=== PATIENT | male | born 1965 | race Hispanic/Latino ===

== ENCOUNTER 2019-08-15 13:40 | Emergency (ER) | payer OTHER, SELFPAY ==
[2019-08-15 13:51] VITALS: BP 118/62; PULSE 71; RESP 16; TEMP 36.4; O2SAT 100
--- NOTE | 2019-08-15 13:54 | ED.URI ---
HPI - URI/Sore Throat General Chief Complaint: Ear Stated Complaint: Sore Throat Time Seen by Provider: 08/15/19 14:11 Source: patient and RN notes reviewed Mode of arrival: ambulatory Limitations: no limitations History of Present Illness HPI Narrative: 54-year-old male presents with concern for right ear pain, body aches, headache, eye heaviness. Reports symptoms started on Friday. Denies taking any medications for symptoms. MD elicited complaint: other (Ear pain) Related Data Allergies Allergy/AdvReac Type Severity Reaction Status Date / Time No Known Allergies Allergy Verified 05/27/19 08:41 Review of Systems Review of Systems: Narrative: CONSTITUTIONAL: Reports malaise, chills, sweats. Denies fever. EYES: Denies visual changes, redness, or discharge. Reports bilateral eye heaviness ENT: Denies rhinorrhea, congestion, sinus pain, otalgia and sore throat. CARDIOVASCULAR: Denies chest pain, palpitations, or edema. RESPIRATORY: Denies cough or dyspnea. GASTROINTESTINAL: Denies abdominal pain, nausea, vomiting, diarrhea SKIN: Denies rash or itching. MUSCULOSKELETAL: Reports myalgia. NEUROLOGIC: Reports headache. All systems reviewed & are unremarkable except as noted in HPI and below PMFSH Social History Social History Smoking status: Never smoker Alcohol intake: current Comments At time of signature, agree with nursing past medical, surgical, social and family history. There is no relevant family history pertinent to the presenting complaint Exam Narrative: Exam Narrative: GENERAL: Well-appearing, well-nourished, and in no acute distress. HEAD: Normocephalic EYES: PERRLA, conjunctivae clear ENT: Nares clear, turbinates erythematous, clear discharge. Mucous membranes moist. Left TM pearly tubbs with dull light reflex, right TM not visible due to cerumen impaction; no tragal tenderness. Oropharynx not erythematous without lesions. Tonsils not enlarged and without exudate, no drooling, no hoarseness, no trismus. NECK: Supple. No lymphadenopathy CHEST: Clear to auscultation, breath sounds equal. No wheezing, rhonchi, rales, or stridor. No respiratory distress, speaks in full sentences. HEART: Regular rate and rhythm. No murmur heard. Normal peripheral pulses. SKIN: Warm, dry, no rash. NEURO: Alert and oriented x3. PSYCH: Normal mood and affect Course Course Emergency Course: Patient is aware of diagnosis, understands and agrees to treatment plan. Anticipatory guidance given. Patient agrees to follow-up as directed and is aware of reasons to seek care at the emergency department. Portions of this record may have been created with voice recognition software Vital Signs Vital signs: Vital Signs Temperature 97.5 F L 08/15/19 13:51 Pulse Rate 71 08/15/19 13:51 Respiratory Rate 16 08/15/19 13:51 Blood Pressure 118/62 08/15/19 13:51 Pulse Oximetry 100 08/15/19 13:51 Temperature 97.5 F L 08/15/19 13:51 Pulse Rate 71 08/15/19 13:51 Respiratory Rate 16 08/15/19 13:51 Blood Pressure 118/62 08/15/19 13:51 Pulse Oximetry 100 08/15/19 13:51 Reviewed. Procedures Ear Wax Removal Right Ear: Ear Wax Removal Date: 08/15/19 Ear Wax Removal Time: 14:23 Results: Re-examined: some cerumen remains TM Examination: TM(s) intact, normal appearance Ear Canal Exam: atraumatic Patient Tolerated Procedure: well and no complications Complications: no problems Technique: ear canal irrigated and ear canal curetted Additional Comments: TM pearly tubbs intact MDM - URI/Sore Throat MDM Narrative Medical decision making narrative: Differential diagnosis considered: Strep pharyngitis, allergic rhinitis, upper respiratory tract infection, sinusitis, rhinosinusitis, nasopharyngitis. viral pharyngitis, otitis media, otitis externa, pneumonia, bronchitis, viral cough syndrome, viral syndrome, and in
== END 2019-08-15 15:25 | disposition home or self-care (01) ==
PROVIDERS: Emergency Provider Nurse Practitioner; PCP Emergency Medicine
DX: B34.9 Viral infection, unspecified (principal); H61.21 Impacted cerumen, right ear
CPT/HCPCS: 69210; 99213; G0463

== ENCOUNTER 2020-11-06 10:45 | Outpatient (CLI) | payer OTHER, SELFPAY ==
--- NOTE | ~2020-11-06 | XR_ITS ---
XR hand LT 2V DATE: 11/06/2020 11:09 INDICATION: Left finger pain TECHNIQUE: AP and lateral views COMPARISON: None FINDINGS: There is mild osteoarthritic change at the first carpometacarpal and some interphalangeal j oints. No recent fracture, dislocation, periosteal reaction or bone destruction. No erosive change or chondr ocalcinosis. IMPRESSION: Mild osteoarthritis Reviewed, dictated and finalized at location A. IMPRESSION: Mild osteoarthritis
== END 2020-11-06 10:46 | disposition home or self-care (01) ==
PROVIDERS: PCP Emergency Medicine; Visit Provider Emergency Medicine
DX: M79.645 Pain in left finger(s) (principal); M19.042 Primary osteoarthritis, left hand
CPT/HCPCS: 73120

== ENCOUNTER 2021-01-16 09:29 | Emergency (ER) | payer OTHER, SELFPAY ==
[2021-01-16 09:39] VITALS: BP 114/80; PULSE 76; RESP 16; TEMP 35.8; O2SAT 99
--- NOTE | 2021-01-16 09:55 | ED.SKABFB ---
HPI - Skin/Abscess/Foreign Bdy General Chief complaint: Skin/Abscess/Foreign Body Stated complaint: rash Time Seen by Provider: 01/16/21 09:43 Source: patient and RN notes reviewed Mode of arrival: ambulatory Limitations: no limitations History of Present Illness HPI narrative: Patient presents today complaining of a rash to the bilateral arms, back, and chest x6 days and has been worsening on the trunk. Denies itching or pain. He has tried no [id number] treatment prior to arrival. Denies any exacerbating or improving factors. MD complaint: rash Related Data Allergies Allergy/AdvReac Type Severity Reaction Status Date / Time No Known Allergies Allergy Verified 01/16/21 09:43 Review of Systems Review of Systems: Narrative: CONSTITUTIONAL: Denies body aches, fever, chills, or sweats. EYES: Denies visual changes, redness, or discharge. ENT: Denies rhinorrhea, congestion, sore throat, or otalgia. CARDIOVASCULAR: Denies chest pain, palpitations, or edema. RESPIRATORY: Denies cough or dyspnea. GASTROINTESTINAL: Denies abdominal pain, nausea, vomiting, or diarrhea. GENITOURINARY: Denies dysuria or hematuria. SKIN: + Rash MUSCULOSKELETAL: Denies back pain, joint pain, or myalgia. NEUROLOGIC: Denies headache, numbness, tingling, or weakness. PSYCH: Denies depression or anxiety. REPLACED BY [facility] Past Medical History Medical History (Reviewed 01/16/21 @ 17:37 by Emerita Allen, [facility], ) Pain of left thumb Social History Social History (Reviewed 01/16/21 @ 17:37 by Emerita Allen, [facility], ) Smoking status: Never smoker Alcohol intake: current Comments At time of signature, I have reviewed and agree with nursing past medical, surgical, social and family history unless otherwise noted. Please see nursing chart for further information. There is no relevant family history pertinent to the presenting complaint Exam Narrative: Exam Narrative: GENERAL: Well-appearing, well-nourished, and in no acute distress. HEAD: Normocephalic, atraumatic. EYES: EOMI. No redness or drainage. Conjunctivae normal. ENT: Mucous membranes pink and moist. NECK: Normal AROM. CHEST: No respiratory distress. EXTREMITIES: Normal range of motion. No edema. SKIN: Warm, dry. Capillary refill normal. Normal skin turgor. + Erythematous papular rash to the bilateral arms, chest, abdomen, and back NEURO: No focal deficits. Alert and oriented x3. Gait steady. PSYCH: Normal affect. No signs of depression or anxiety. Course Vital Signs Vital signs: Vital Signs Temperature 96.4 F L 01/16/21 09:39 Pulse Rate 76 01/16/21 09:39 Respiratory Rate 16 01/16/21 09:39 Blood Pressure 114/80 01/16/21 09:39 Pulse Oximetry 99 01/16/21 09:39 Temperature 96.4 F L 01/16/21 09:39 Pulse Rate 76 01/16/21 09:39 Respiratory Rate 16 01/16/21 09:39 Blood Pressure 114/80 01/16/21 09:39 Pulse Oximetry 99 01/16/21 09:39 Reviewed MDM - Skin/Abscess/Foreign Bdy Differential Diagnosis Differential diagnosis: Likely urticaria, cellulitis, eczema, insect bites, impetigo and contact dermatitis Critical Care Time Critical Care Time Critical Care Time: No Discharge Plan Discharge Clinical Impression: Dermatitis Patient Disposition: Home, Self-Care Condition: Stable Instructions: Dermatitis (ED) Additional Instructions: Please take the prednisone as prescribed. For itching, please take an antihistamine such as Benadryl, Zyrtec, Claritin, or Darya. Follow-up with your PCP in 3 to 4 days if symptoms are not improving. Patient Language: [place] Islander Prescriptions: New prednisone 50 mg tablet 50 mg PO DAILY 5 Days Qty: 5 RF: 0 Follow-up/Referrals: Lorenzo Gregory MD [Primary Care Provider] - Time of Disposition: 09:
== END 2021-01-16 10:08 | disposition home or self-care (01) ==
PROVIDERS: Emergency Provider Nurse Practitioner; PCP Emergency Medicine
DX: L30.9 Dermatitis, unspecified (principal)
CPT/HCPCS: 99213; G0463

== ENCOUNTER 2021-02-21 09:45 | Emergency (ER) | payer OTHER, SELFPAY ==
[2021-02-21 10:13] VITALS: BP 108/73; PULSE 74; RESP 16; TEMP 36.6; O2SAT 99
--- NOTE | 2021-02-21 11:17 | ED.SKABFB ---
HPI - Skin/Abscess/Foreign Bdy General Chief complaint: Skin/Abscess/Foreign Body Stated complaint: abd pain Time Seen by Provider: 02/21/21 10:52 Source: patient and RN notes reviewed Mode of arrival: ambulatory Limitations: no limitations History of Present Illness HPI narrative: 55-year-old male presents to the [facility] with complaints of a rash to his left upper arm and chest. Red raised areas with some vesicles at the hair follicles only. Denies itchiness or pain. States has been there for several weeks possibly for. Patient states he is also concerned about a hemorrhoid. Woke up this morning and tried to have a bowel movement had some tenderness to the rectal area. No bleeding noted. Hemorrhoid is not thrombosed. MD complaint: rash Related Data Allergies Allergy/AdvReac Type Severity Reaction Status Date / Time No Known Allergies Allergy Verified 01/16/21 09:43 Review of Systems Review of Systems: All systems reviewed & are unremarkable except as noted in HPI and below Constitutional: Constitutional: Reports no additional constitutional complaints, Denies chills and Denies fever(s) Eyes: Eyes: Reports no additional eye complaints ENT: Reports system reviewed and no additional complaints, except as documented and Denies sore throat Cardiovascular: Cardiovascular: Reports no additional cardiovascular complaints and Denies chest pain Respiratory: Respiratory: Reports no additional respiratory complaints, Denies cough and Denies dyspnea Gastrointestinal: Gastrointestinal: Reports no additional gastrointestinal complaints, Denies abdominal pain, Denies bloating, Denies hematochezia, Denies fecal incontinence, Denies loose stools, Denies nausea, Denies vomiting and Denies hematemesis Genitourinary: Genitourinary: Reports no additional male genitourinary complaints Musculoskeletal: Musculoskeletal: Reports no additional musculoskeletal complaints and Denies back pain Integumentary/Breasts: Skin/Breast: Reports as per HPI and Reports rash Neurologic: Reports system reviewed and no additional complaints, except as documented Psychiatric: Psychiatric: Reports no additional psychiatric complaints Allergic/Immunologic: Allergic/Immunologic: Reports no additional allergic/immunologic complaints PMFSH Past Medical History Medical History Pain of left thumb Surgical History Surgical History (Updated 02/21/21 @ 12:10 by Livier Muller) No significant past surgical history Social History Social History (Reviewed 09/01/21 @ 12:11 by Livier Pacheco Smoking status: Never smoker Alcohol intake: current Comments At the time of my signature, I reviewed and agree with the nursing past medical, surgical, social, and family history. There is no relevant family history pertinent to the patient complaint. Exam Const: General: healthy appearing, no acute distress and alert Nutritional Appearance: well nourished Orientation/consciousness: patient oriented x3 Limitations: no limitations HENMT: Head: normal to inspection Ears: external ears normal Eyes: Conjunctivae: conjunctivae normal Pupils: Equal, round and reactive pupils present Neck: Neck: normal visual inspection, no lymphadenopathy and no meningeal signs Chest: Chest palpation & inspection: normal inspection of the chest Resp: Effort & Inspection: normal respiratory effort and no use of accessory muscles Auscultation: clear to auscultation bilaterally, no crackles, no rales, no rhonchi and no wheezes Cardio: Rate: regular rate Rhythm: regular rhythm GI: GI Palp: Yes Soft to palpation and No Tenderness to palpation present (GI) : General: Yes no CVA tenderness Other: Hemorrhoid noted at the 3:00 rectally. Nonthrombosed. Tender to touch. Back/Spine/Pelvis: Back: no CVA tenderness Skin: General skin exam: normal color Neuro: General: patient oriented x3, moves all extremities, no menin
== END 2021-02-21 11:31 | disposition home or self-care (01) ==
PROVIDERS: Emergency Provider Nurse Practitioner
DX: L73.9 Follicular disorder, unspecified (principal); K64.9 Unspecified hemorrhoids
CPT/HCPCS: 99213; G0463

== ENCOUNTER 2021-05-10 10:14 | Outpatient (CLI) | payer OTHER, SELFPAY ==
[2021-05-10 12:57] LABS: Hemoglobin 15.8 g/dL (14.0-18.0); Mean Corpuscular HGB Conc 34.3 g/dl (32-36); Mean Corpuscular Hemoglobin 28.6 pg (26-34); Mean Corpuscular Volume 83.2 fl (80-100); Mean Platelet Volume 10.2 fl (7.4-10.4); Platelet Count Result 215 k/mm3 (150-375); Red Blood Count 5.53 M/mm3 (4.6-6.20); Red Cell Distribution Width 12.4 % (11.5-14.5); White Blood Count 7.4 K/mm3 (4.5-10.0)
[2021-05-10 13:21] LABS: Alanine Aminotransferase 39 U/L (4-50); Albumin Level 4.6 g/dL (3.5-5.1); Alkaline Phosphatase 112 U/L (38-126); Anion Gap 10 mmol/L (8-16); Aspartate Amino Transferase 22 U/L (17-59); Bilirubin,Total 0.6 mg/dL (0.2-1.3); Blood Urea Nitrogen 18 mg/dL (9-20); Calcium 9.5 mg/dL (8.4-10.2); Carbon Dioxide 24 mmol/L (22-30); Chloride 100 mmol/L (98-107); Cholesterol 214 mg/dL (0-200); Estimated Glomerular Filt Rate > 60; Glucose 227 mg/dL (65-110); HDL Direct 44 mg/dL; Potassium 3.9 mmol/L (3.4-5.0); Sodium 134 mmol/L (137-145); Triglycerides 368 mg/dL (<150)
[2021-05-10 13:32] LABS: LDL Cholesterol Direct 105 mg/dL
[2021-05-10 13:45] LABS: Add Urine Microscopic? YES; Appearance Urine Clear (Clear); Bilirubin Urine Negative (Negative); Blood Urine Negative (Negative); Color Urine Yellow (Yellow); Glucose Urine UA 3+ mg/dL (Negative); Ketones Urine Trace mg/dL (Negative); Leukocyte Esterase Ur Negative LEU/UL (NEGATIVE); Mucus Urine Rare /lpf; Nitrate Urine Negative (Negative); Protein Urine 1+ mg/dL (Negative); Urobilinogen Urine Negative mg/dL (<2.0); WBC Urine 0-3 /hpf (0-3)
[2021-05-10 13:52] LABS: Prostate Specific Antigen 0.2 ng/mL (< OR = 4.0)
[2021-05-10 14:27] LABS: Hemoglobin A1C 10.1 % (<5.7)
== END 2021-05-10 10:15 | disposition home or self-care (01) ==
LOC: ANHWCLAB 10:19
PROVIDERS: PCP Emergency Medicine; Referring Provider Nurse Practitioner Family; Visit Provider Nurse Practitioner Family
DX: Z00.00 Encounter for general adult medical examination without abnormal findings (principal); Z13.29 Encounter for screening for other suspected endocrine disorder; Z13.220 Encounter for screening for lipoid disorders; Z13.89 Encounter for screening for other disorder; Z13.1 Encounter for screening for diabetes mellitus
CPT/HCPCS: 36415; 80053; 80061; 81001; 83036; 84153; 84443; 85027

== ENCOUNTER 2021-09-11 08:42 | Emergency (ER) | payer OTHER, SELFPAY ==
--- NOTE | ~2021-09-11 | XR_ITS ---
XR knee RT 3V, XR knee LT 3V 09/11/2021 09:22 Indication: Bilateral knee pain Procedure: 3 views each knee Comparison: No prior studies for comparison. Findings: Mild osteoarthritis of both knees. No fracture, subluxation or dislocation. No significant joint effusion. No foreign bodies. Impression: 1: Mild osteoarthritis of the knees. Reviewed, dictated and finalized at location A. Impression: 1: Mild osteoarthritis of the knees. Impression: 1: Mild osteoarthritis of the knees.
[2021-09-11 08:55] VITALS: BP 99/74; PULSE 74; RESP 16; TEMP 36.2; O2SAT 99
--- NOTE | 2021-09-11 08:55 | ED.EXTPRO ---
HPI - Extremity Problem General Chief complaint: Extremity Injury, Lower Stated complaint: left leg pain Time Seen by Provider: 09/11/21 08:56 Source: patient, RN notes reviewed and old records reviewed Mode of arrival: ambulatory Limitations: no limitations History of Present Illness HPI Narrative: 56-year-old male presents to the [facility] with a complaints of bilateral leg pain, posterior knee pain, occasional headache, back pain. Most concerned today for the posterior knee pain that kept him up last night. Denies any injuries. No swelling, redness or signs of infection. Denies fevers. Patient reports that he wants something to help him sleep and to help with the pain. Patient has a history of diabetes and high cholesterol. Patient states that he was prescribed medication back in April, finished in May. Has not taken his cholesterol medication or diabetes medication since mid May. Educated patient on the importance of taking it every day and follow-up with primary MD Complaint: extremity pain (bilateral knees) Related Data Home Medications Medication Instructions Recorded Confirmed atorvastatin 40 mg PO DAILY 09/11/21 09/11/21 metformin 1,000 mg PO DAILY 09/11/21 09/11/21 Allergies Allergy/AdvReac Type Severity Reaction Status Date / Time No Known Allergies Allergy Verified 09/11/21 09:07 Review of Systems Review of Systems: All systems reviewed & are unremarkable except as noted in HPI and below Constitutional: Constitutional: Reports no additional constitutional complaints, Denies chills and Denies fever(s) Eyes: Eyes: Reports no additional eye complaints ENT: Reports system reviewed and no additional complaints, except as documented Cardiovascular: Cardiovascular: Reports no additional cardiovascular complaints Respiratory: Respiratory: Reports no additional respiratory complaints Gastrointestinal: Gastrointestinal: Reports no additional gastrointestinal complaints Musculoskeletal: Musculoskeletal: Reports as per HPI, Reports myalgias and Reports arthralgias (bilateral knee) Integumentary/Breasts: Skin/Breast: Reports system reviewed and no additional complaints, except as docu, Denies erythema and Denies rash Neurologic: Reports system reviewed and no additional complaints, except as documented, Denies dizziness, Denies headache(s), Denies focal weakness, Denies numbness and Denies weakness Psychiatric: Psychiatric: Reports no additional psychiatric complaints Allergic/Immunologic: Allergic/Immunologic: Reports no additional allergic/immunologic complaints [facility] Past Medical History Medical History (Updated 09/11/21 @ 18:15 by Livier Muller APRN) Diabetes High cholesterol Pain of left thumb Surgical History Surgical History No significant past surgical history Social History Social History Smoking status: Never smoker Alcohol intake: current Comments At the time of my signature, I reviewed and agree with the nursing past medical, surgical, social, and family history. There is no relevant family history pertinent to the patient complaint. Exam Const: General: healthy appearing, no acute distress and alert Nutritional Appearance: well nourished Orientation/consciousness: patient oriented x3 Limitations: no limitations HENMT: Head: normal to inspection Ears: external ears normal, TM's normal bilaterally and EAC's normal Face and sinus: normal facial exam Eyes: Pupils: Equal, round and reactive pupils present Neck: Neck: normal visual inspection, no lymphadenopathy and no meningeal signs Chest: Chest palpation & inspection: normal inspection of the chest Resp: Effort & Inspection: normal respiratory effort and no use of accessory muscles Auscultation: clear to auscultation bilaterally, no crackles, no rales, no rhonchi and no wheezes Cardio: Rate:
[2021-09-11 09:30] LABS: Glucose Point of Care 246 mg/dl (65-105)
== END 2021-09-11 09:45 | disposition home or self-care (01) ==
PROVIDERS: Emergency Provider Nurse Practitioner; PCP Nurse Practitioner Family
DX: M17.0 Bilateral primary osteoarthritis of knee (principal); E11.9 Type 2 diabetes mellitus without complications; E78.00 Pure hypercholesterolemia, unspecified
CPT/HCPCS: 73562; 82948; 99214; G0463

== ENCOUNTER 2022-08-10 09:16 | Emergency (ER) | payer OTHER, SELFPAY ==
[2022-08-10 09:28] VITALS: BP 109/70; PULSE 78; RESP 12; TEMP 36.6; O2SAT 100
--- NOTE | 2022-08-10 10:04 | ED.GENADULT ---
HPI - General Adult General Chief complaint: Upper Respiratory Infection Stated complaint: BodyAches Time Seen by Provider: 08/10/22 10:16 Source: patient, RN notes reviewed and old records reviewed Mode of arrival: ambulatory Limitations: no limitations History of Present Illness HPI narrative: 57-year-old male presents to the [facility] with complaints body aches. Patient reports bilateral knee pain similar to when he was seen last time and states the indomethacin worked well. Patient walks with a normal gait. No redness, swelling noted to lower extremity. Reviewed previous chart and x-rays. Reports posterior intermittent leg pain close to the knees. Reports intermittent hip pain, none currently Onset (ago): day(s) (4) Related Data Home Medications Medication Instructions Recorded Confirmed atorvastatin 40 mg tablet 40 mg PO DAILY 09/11/21 08/10/22 metformin 1,000 mg tablet 1,000 mg PO DAILY 09/11/21 08/10/22 Allergies Allergy/AdvReac Type Severity Reaction Status Date / Time No Known Allergies Allergy Verified 08/10/22 09:53 Review of Systems Review of Systems: All systems reviewed & are unremarkable except as noted in HPI and below Constitutional: Constitutional: Reports no additional constitutional complaints Eyes: Eyes: Reports no additional eye complaints ENT: Reports system reviewed and no additional complaints, except as documented Cardiovascular: Cardiovascular: Reports no additional cardiovascular complaints, Denies chest pain and Denies dyspnea Respiratory: Respiratory: Reports no additional respiratory complaints, Denies chest congestion, Denies cough and Denies dyspnea Gastrointestinal: Gastrointestinal: Reports no additional gastrointestinal complaints, Denies abdominal pain, Denies nausea and Denies vomiting Musculoskeletal: Musculoskeletal: Reports as per HPI Integumentary/Breasts: Skin/Breast: Reports system reviewed and no additional complaints, except as docu Neurologic: Reports system reviewed and no additional complaints, except as documented Psychiatric: Psychiatric: Reports no additional psychiatric complaints Allergic/Immunologic: Allergic/Immunologic: Reports no additional allergic/immunologic complaints [facility] Past Medical History Medical History Diabetes High cholesterol Pain of left thumb Surgical History Surgical History No significant past surgical history Social History Social History Smoking status: Never smoker Alcohol intake: current Comments At the time of my signature, I reviewed and agree with the nursing past medical, surgical, social, and family history. There is no relevant family history pertinent to the patient complaint. Exam Const: General: cooperative, healthy appearing, comfortable, no acute distress, well developed, alert and well nourished Nutritional Appearance: well nourished Orientation/consciousness: patient oriented x3 Limitations: no limitations HENMT: Head: normal to inspection Ears: hearing grossly normal bilaterally and external ears normal Face/Nose/Sinus: Normal external nose present, Normal nares present, Normal nasal mucous membranes and turbinates present and normal facial exam Face and sinus: normal facial exam Mouth: Yes Normal oral and palatal mucosa present, Yes lip normal and Yes moist mucous membranes Throat: posterior oropharynx normal and uvula midline Eyes: General: appearance normal, both eyes and all related structures Alignment and Position: alignment normal Periorbital: periorbital findings normal Conjunctivae: conjunctivae normal Pupils: Equal, round and reactive pupils present EOM: EOMs intact bilaterally Neck: Neck: normal visual inspection, full ROM, no lymphadenopathy and no meningeal signs Chest: Chest palpation & inspection: normal ins
[2022-08-10 11:04] LABS: Glucose Point of Care 190 mg/dl (65-105)
== END 2022-08-10 10:45 | disposition home or self-care (01) ==
PROVIDERS: Emergency Provider Nurse Practitioner; PCP Nurse Practitioner Family
DX: M25.562 Pain in left knee (principal); M25.561 Pain in right knee; M79.10 Myalgia, unspecified site; E11.9 Type 2 diabetes mellitus without complications; E78.00 Pure hypercholesterolemia, unspecified
CPT/HCPCS: 82948; 99213; G0463

== ENCOUNTER 2022-11-01 08:52 | Outpatient (CLI) | payer OTHER, SELFPAY ==
[2022-11-01 10:30] LABS: Hematocrit 41.8 % (42.0-52.0); Hemoglobin 13.9 g/dL (14.0-18.0); Mean Corpuscular HGB Conc 33.3 g/dl (32-36); Mean Corpuscular Hemoglobin 27.2 pg (26-34); Mean Corpuscular Volume 81.8 fl (80-100); Mean Platelet Volume 10.4 fl (7.4-10.4); Platelet Count Result 213 k/mm3 (150-375); Red Blood Count 5.11 M/mm3 (4.6-6.20); Red Cell Distribution Width 13.2 % (11.5-14.5); White Blood Count 6.7 K/mm3 (4.5-10.0)
[2022-11-01 10:34] LABS: Appearance Urine Clear (Clear); Bilirubin Urine Negative (Negative); Blood Urine Negative (Negative); Color Urine Yellow (Yellow); Glucose Urine UA Negative (Negative); Ketones Urine Negative (Negative); Leukocyte Esterase Ur Negative LEU/UL (NEGATIVE); Nitrate Urine Negative (Negative); Protein Urine Negative (Negative); Specific Grav Ur 1.014 (1.001-1.035); Urobilinogen Urine 0.2 mg/dL (<2.0); pH Urine 6.5 (5.0-9.0)
[2022-11-01 10:35] LABS: Add Urine Microscopic? NO
[2022-11-01 10:42] LABS: Alanine Aminotransferase 39 U/L (6-50); Albumin Level 4.5 g/dL (3.5-5.1); Alkaline Phosphatase 79 U/L (38-126); Anion Gap 8 mmol/L (8-16); Aspartate Amino Transferase 31 U/L (17-59); Bilirubin,Total 1.2 mg/dL (0.2-1.3); Blood Urea Nitrogen 13 mg/dL (9-20); Calcium 8.8 mg/dL (8.4-10.2); Carbon Dioxide 28 mmol/L (22-30); Chloride 103 mmol/L (98-107); Cholesterol 88 mg/dL (0-200); Estimated Glomerular Filt Rate > 60; Glucose 101 mg/dL (65-110); HDL Direct 38 mg/dL; Potassium 3.8 mmol/L (3.4-5.0); Sodium 139 mmol/L (137-145); Triglycerides 99 mg/dL (<150)
[2022-11-01 10:47] LABS: Hemoglobin A1C 6.4 % (<5.7)
[2022-11-01 10:55] LABS: LDL Cholesterol Direct 31 mg/dL
[2022-11-01 11:10] LABS: Prostate Specific Antigen 0.4 ng/mL (< OR = 4.0)
== END 2022-11-01 08:53 | disposition home or self-care (01) ==
PROVIDERS: PCP Nurse Practitioner Family; Visit Provider Nurse Practitioner Family
DX: E11.65 Type 2 diabetes mellitus with hyperglycemia (principal); Z12.5 Encounter for screening for malignant neoplasm of prostate; E78.5 Hyperlipidemia, unspecified
CPT/HCPCS: 36415; 80053; 80061; 81003; 83036; 84153; 85027; G0103

== ENCOUNTER 2023-01-05 10:08 | Emergency (ER) | payer OTHER, SELFPAY ==
--- NOTE | 2023-01-05 10:10 | ED.SKABFB ---
HPI - Skin/Abscess/Foreign Bdy General Chief complaint: Skin/Abscess/Foreign Body Stated complaint: skin irritation Time Seen by Provider: 01/05/23 10:09 Source: patient Mode of arrival: ambulatory Limitations: no limitations History of Present Illness HPI narrative: Patient is a 57-year-old male that presents with rash to bilateral lower extremities and abdomen. Patient states he thinks it is poison josé miguel due to itching. Patient states this started last night but has worsened this morning. Patient denies any new detergents, soaps, foods. Patient states he did start taking Celebrex last week but has not had any symptoms of itching until yesterday. Denies any shortness of breath, throat swelling or difficulty swallowing. Related Data Home Medications Medication Instructions Recorded Confirmed atorvastatin 40 mg tablet 40 mg PO DAILY 09/11/21 01/05/23 metformin 1,000 mg tablet 1,000 mg PO DAILY 09/11/21 01/05/23 celecoxib 200 mg capsule 200 mg PO DAILY 01/05/23 01/05/23 ferrous sulfate 325 mg (65 mg 325 mg PO DAILY 01/05/23 01/05/23 iron) tablet (FeroSul) meloxicam 15 mg tablet 15 mg PO DAILY 01/05/23 01/05/23 terbinafine HCl 250 mg tablet 250 mg PO DAILY 01/05/23 01/05/23 Allergies Allergy/AdvReac Type Severity Reaction Status Date / Time No Known Allergies Allergy Verified 01/05/23 10:14 Review of Systems Review of Systems: All systems reviewed & are unremarkable except as noted in HPI and below Constitutional: Constitutional: Denies body ache(s), Denies chills, Denies fatigue, Denies fever(s), Denies headache(s), Denies malaise and Denies weakness Eyes: Eyes: Denies blurry vision, Denies irritation and Denies loss of vision ENT: Denies otalgia, Denies headache(s), Denies nasal discharge, Denies sinus pain and Denies sore throat Cardiovascular: Cardiovascular: Denies chest pain, Denies irregular heart rhythm and Denies dyspnea Respiratory: Respiratory: Denies dyspnea Gastrointestinal: Gastrointestinal: Denies abdominal pain, Denies melena, Denies hematochezia, Denies diarrhea, Denies nausea and Denies vomiting Musculoskeletal: Musculoskeletal: Denies back pain, Denies myalgias and Denies arthralgias Integumentary/Breasts: Skin/Breast: Denies pruritus and Reports rash Neurologic: Denies headache(s), Denies loss of vision and Denies weakness Psychiatric: Psychiatric: Reports no additional psychiatric complaints Endocrine: Endocrine: Denies fatigue PMFSH Past Medical History Medical History Diabetes High cholesterol Pain of left thumb Surgical History Surgical History No significant past surgical history Social History Social History Smoking status: Never smoker Alcohol intake: current Comments At time of signature, agree with nursing past medical, surgical, social and family history. There is no relevant family history pertinent to the presenting complaint. Exam Const: General: cooperative, healthy appearing, comfortable, no acute distress and well nourished Nutritional Appearance: well nourished Orientation/consciousness: patient oriented x3 Limitations: no limitations HENMT: Head: normal to inspection, normocephalic and atraumatic Ears: hearing grossly normal bilaterally and external ears normal Face/Nose/Sinus: Normal external nose present, normal facial exam and face symmetric Face and sinus: normal facial exam and face symmetric Mouth: Yes lip normal Eyes: General: appearance normal, both eyes and all related structures Alignment and Position: alignment normal and position normal Periorbital: periorbital findings normal Eyelids: eyelids normal Pupils: Equal, round and reactive pupils present EOM: EOMs intact bilaterally Neck: Neck: normal visual inspection, full ROM and supple Chest: Chest palpation & inspecti
[2023-01-05 10:21] VITALS: BP 99/67; PULSE 90; RESP 16; TEMP 35.7; O2SAT 99
== END 2023-01-05 10:53 | disposition home or self-care (01) ==
PROVIDERS: Emergency Provider Nurse Practitioner Family; PCP Nurse Practitioner Family
DX: L50.9 Urticaria, unspecified (principal); E11.9 Type 2 diabetes mellitus without complications; E78.00 Pure hypercholesterolemia, unspecified
CPT/HCPCS: 99213; G0463

== ENCOUNTER 2023-03-19 08:10 | Outpatient (CLI) | payer OTHER, SELFPAY ==
[2023-03-19 08:38] LABS: Alanine Aminotransferase 22 U/L (6-50); Aspartate Amino Transferase 23 U/L (17-59)
== END 2023-03-19 08:11 | disposition home or self-care (01) ==
LOC: ANHLAB 08:12
PROVIDERS: PCP Nurse Practitioner Family; Visit Provider Podiatrist Foot & Ankle Surgery
DX: B35.1 Tinea unguium (principal)
CPT/HCPCS: 36415; 84450; 84460

== ENCOUNTER 2023-06-04 09:09 | Emergency (ER) | payer OTHER, SELFPAY ==
[2023-06-04 09:25] VITALS: BP 124/62; PULSE 84; RESP 16; TEMP 37.3; O2SAT 100
--- NOTE | 2023-06-04 09:37 | ED.URI ---
HPI - URI/Sore Throat General Chief Complaint: Upper Respiratory Infection Stated Complaint: Bodyaches Time Seen by Provider: 06/04/23 09:37 Source: patient Mode of arrival: ambulatory Limitations: no limitations History of Present Illness HPI Narrative: 58-year-old male presents with complaint of joints aching, fatigue, headache and congestion starting yesterday. Afebrile. Reports that his has been sick with upper respiratory symptoms. Patient reports that he is going out of town to [place] for a wedding, would like to feel better before he goes. Patient states that he likes to take prednisone when joints aching because it helps with his arthritis. Requesting prescription. All systems reviewed and negative except as noted above. Related Data Home Medications Medication Instructions Recorded Confirmed metformin 1,000 mg tablet 1,000 mg PO DAILY 09/11/21 04/21/23 meloxicam 15 mg tablet 15 mg PO DAILY 01/05/23 04/21/23 terbinafine HCl 250 mg tablet 250 mg PO DAILY 01/05/23 04/21/23 Allergies Allergy/AdvReac Type Severity Reaction Status Date / Time No Known Allergies Allergy Verified 06/04/23 09:17 Review of Systems Review of Systems: CONSTITUTIONAL: Denies fever, chills, or sweats. Reports fatigue. EYES: Denies visual changes, redness, or discharge. ENT: Denies rhinorrhea, congestion, sore throat, or otalgia. CARDIOVASCULAR: Denies chest pain, palpitations, or edema. RESPIRATORY: Denies cough or dyspnea. GASTROINTESTINAL: Denies abdominal pain, nausea, vomiting, or diarrhea. GENITOURINARY: Denies dysuria or hematuria. SKIN: Denies rash or itching. MUSCULOSKELETAL: Denies back pain. Reports Joint pain. NEUROLOGIC: Reports headache. Denies numbness, or weakness. PSYCHIATRIC: Denies anxiety or depression. All other systems reviewed are negative, except as documented in HPI. [facility] Past Medical History Medical History (Updated 06/04/23 @ 09:46 by Natalie Churchill NP) Arthritis Diabetes High cholesterol Pain of left thumb Surgical History Surgical History No significant past surgical history Social History Social History Smoking status: Never smoker Alcohol intake: current Comments At time of signature, agree with nursing past medical, surgical, social and family history. There is no relevant family history pertinent to the presenting complaint. Exam Narrative: GENERAL: This is a well-nourished, well-developed patient, in no apparent distress. HEAD: normocephalic, atraumatic. EYES: PERRL. Sclera clear/white. Vision is grossly intact. EARS: External ears normal, auditory canals clear and without drainage, TMs normal without perforation. Hearing grossly intact. NOSE: External nose normal with no obvious nasal discharge, nares without redness, no rhinorrhea. THROAT: Mucous membranes moist, posterior pharynx clear. NECK: Neck supple, non-tender without lymphadenopathy, masses or thyromegaly. CARDIOVASCULAR: Regular rate and rhythm without murmurs, gallops, or rubs. RESPIRATORY: Clear to auscultation. Breath sounds equal bilaterally. No wheezes, rales, or rhonchi. SKIN: warm, Dry, intact with no suspicious lesions or rash, good texture and turgor. NEURO: awake, alert, and oriented to person, place and time. There were no obvious focal neurologic abnormalities. EXTREMITIES: No joint tenderness, effusion, or edema noted. Course Course Level of Care: Express Care Visit Vital Signs Vital signs: Vital Signs Temperature 37.3 C 06/04/23 09:25 Pulse Rate 84 06/04/23 09:25 Respiratory Rate 16 06/04/23 09:25 Blood Pressure 124/62 06/04/23 09:25 Pulse Oximetry 100 06/04/23 09:25 Oxygen Delivery Room Air 06/04/23 09:25 Temperature 37.3 C 06/04/23 09:25 Pulse Rate 84 06/04/23 09:25 Respiratory Rate 16 06/04/23 09:25 Blood Pressure
== END 2023-06-04 09:53 | disposition home or self-care (01) ==
PROVIDERS: Emergency Provider Nurse Practitioner Family; PCP Nurse Practitioner Family
DX: J10.1 Influenza due to other identified influenza virus with other respiratory manifestations (principal); Z20.822 Contact with and (suspected) exposure to COVID-19
CPT/HCPCS: 87426; 87804; 99213; C9803; G0463

== ENCOUNTER 2024-02-28 09:34 | Outpatient (CLI) | payer OTHER, SELFPAY ==
[2024-02-28 10:17] LABS: Hemoglobin A1C 6.2 % (<5.7)
[2024-02-28 10:23] LABS: Alanine Aminotransferase 34 U/L (6-50); Albumin Level 4.5 g/dL (3.5-5.1); Alkaline Phosphatase 85 U/L (38-126); Anion Gap 10 mmol/L (4-12); Aspartate Amino Transferase 23 U/L (17-59); Bilirubin,Total 0.8 mg/dL (0.2-1.3); Blood Urea Nitrogen 13 mg/dL (9-20); Calcium 9.1 mg/dL (8.4-10.2); Carbon Dioxide 28 mmol/L (22-30); Chloride 101 mmol/L (98-107); Cholesterol 94 mg/dL (0-200); Estimated Glomerular Filt Rate > 60; Glucose 116 mg/dL (65-110); HDL Direct 41 mg/dL; Potassium 3.9 mmol/L (3.4-5.0); Sodium 139 mmol/L (137-145); Triglycerides 111 mg/dL (<150)
[2024-02-28 10:33] LABS: Vitamin D 25 Hydroxy 34.9 ng/mL
[2024-02-28 10:34] LABS: LDL Cholesterol Direct 32 mg/dL
[2024-03-03 13:53] LABS: Testosterone Free 86.1 pg/mL (35.0-155.0); Testosterone Total 459 ng/dL (250-1100)
== END 2024-02-28 09:35 | disposition home or self-care (01) ==
PROVIDERS: PCP Emergency Medicine; Visit Provider Emergency Medicine
DX: E78.5 Hyperlipidemia, unspecified (principal); R79.89 Other specified abnormal findings of blood chemistry; E03.9 Hypothyroidism, unspecified; E55.9 Vitamin D deficiency, unspecified; E11.9 Type 2 diabetes mellitus without complications
CPT/HCPCS: 36415; 80053; 80061; 82306; 83036; 84402; 84403; 84443

== ENCOUNTER 2024-05-17 09:13 | Emergency (ER) | payer OTHER, SELFPAY ==
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
[2024-05-17 09:26] VITALS: BP 102/67; PULSE 73; RESP 16; TEMP 35.8; O2SAT 100
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
[2024-05-17 10:36] LABS: EDSTREPNEGPOS1 Negative (Negative)
== END 2024-05-17 11:14 | disposition home or self-care (01) ==
PROVIDERS: Emergency Provider Nurse Practitioner; PCP Emergency Medicine
DX: J06.9 Acute upper respiratory infection, unspecified (principal); S39.012A Strain of muscle, fascia and tendon of lower back, initial encounter; V49.60XA Unspecified car occupant injured in collision with unspecified motor vehicles in traffic accident, initial encounter; E11.9 Type 2 diabetes mellitus without complications; E78.00 Pure hypercholesterolemia, unspecified; M19.90 Unspecified osteoarthritis, unspecified site
CPT/HCPCS: 72100; 87081; 87880; 99213; G0463

== ENCOUNTER 2024-12-06 09:40 | Emergency (ER) | payer OTHER, SELFPAY ==
[2024-12-06 09:48] VITALS: BP 96/62; PULSE 80; RESP 16; TEMP 37.1; O2SAT 98
--- NOTE | 2024-12-06 10:03 | ED.URI ---
HPI - URI/Sore Throat General Chief Complaint: Upper Respiratory Infection Stated Complaint: Sinus Time Seen by Provider: 12/06/24 09:42 Source: patient Mode of arrival: ambulatory Limitations: no limitations History of Present Illness HPI Narrative: Patient is a 59 year old male presents to the clinic with complaints of a sore throat and body aches. He states that his symptoms started 5 days ago and have all resolved. He has not been taking anything over the counter. Denies any nausea, vomiting, diarrhea, shortness of breath, or fevers. Related Data Allergies Allergy/AdvReac Type Severity Reaction Status Date / Time No Known Allergies Allergy Verified 12/06/24 10:03 Review of Systems Review of Systems: CONSTITUTIONAL: Denies body aches, fever, chills, or sweats. Reports EYES: Denies visual changes, redness, or discharge. ENT: Denies rhinorrhea, congestion, sore throat, or otalgia. CARDIOVASCULAR: Denies chest pain, palpitations, or edema. RESPIRATORY: Denies cough or dyspnea. GASTROINTESTINAL: Denies abdominal pain, nausea, vomiting, or diarrhea. GENITOURINARY: Denies dysuria or hematuria. SKIN: Denies rash, itching, or wounds. MUSCULOSKELETAL: Denies back pain, joint pain, or myalgia. NEUROLOGIC: Denies headache, numbness, tingling, or weakness. PSYCH: Denies depression or anxiety. [facility] Past Medical History Medical History Muscle strain of chest wall Hyperlipidemia Fatigue Calculus of gallbladder with cholecystitis without biliary obstruction Bilateral shoulder pain Vitamin D deficiency Testicular pain Swelling, mass, or lump in chest Rib deformity Pain in unspecified shoulder Pain in left shoulder Otalgia of both ears Male erectile dysfunction, unspecified Lip dryness Hypertriglyceridemia Hyperglycemia Excessive cerumen in left ear canal Excessive cerumen in both ear canals Chronic sinusitis, unspecified Acute pain of left wrist Acute left-sided low back pain with left-sided sciatica Arthritis Diabetes High cholesterol Pain of left thumb Surgical History Surgical History S/P vasectomy No significant past surgical history Social History Social History Smoking status: Never smoker Alcohol intake: current Do You Feel Safe in your Home?: Yes Lack of Transportation: No Lack of Food: Never True Current Housing: I Have Housing Concerned About Future Housing: No Difficulty Paying Gas/Electric Bills: No Difficulty Paying for Meds: No Currently Unemployed: No Education: High School Diploma/GED Difficulty w/ Childcare or Family Care: No Comments At time of signature, I have reviewed and agree with nursing past medical, surgical, social and family history unless otherwise noted. Please see nursing chart for further information. There is no relevant family history pertinent to the presenting complaint. Exam Narrative: GENERAL: Well-appearing, well-nourished, and in no acute distress. EYES: EOMI. No redness or drainage. Conjunctivae normal. ENT: Mucous membranes pink and moist. Nares clear. No rhinorrhea. TMs normal bilaterally. No Throat Erythema or tonsillar exudate, uvula midline. No nasal congestion. NECK: Normal AROM. Supple. No lymphadenopathy. CHEST: No respiratory distress. Clear to auscultation. HEART: Regular rate and rhythm. No murmur appreciated. Normal peripheral pulses. ABDOMEN: Soft, nontender, nondistended, normal active bowel sounds. SKIN: Warm, dry, no rash. Capillary refill normal. Normal skin turgor. NEURO: No focal deficits. Alert and oriented x3. Gait steady. PSYCH: Normal affect. No signs of depression or anxiety. Course Course Level of Care: Express Care Visit Vital Signs Vital signs: Vital Signs Temperature 98.7 F 12/06/24 09:48 Pulse Rate 80 12/06/24 09:48 Respiratory Rate 16 12/06/24 09:48 Blood Pressure 96/62 L 12/06/24 09:48 Pulse Oximetry 98 12/06/24 09:48 Oxygen Delivery Room Air 12/06/24 09:48 Temperature 98.7 F 12/06/24 09:48 Pulse Rate 80 12/06/24 09:48 Respiratory Rate 16 12/06/24 09:48 Blood Pressure 96/62 L 12/06/24 09:48 Pulse Oximetry 98 12/06/24 09:48 Oxygen Delivery Room Air 12/06/24 09:48 Reviewed. MDM - URI/Sore Throat MDM Narrative Medical decision making narrative: Discussed physical exam findings. Symptoms were likely due to a viral illness. Advised supportive measures and signs/symptoms to go to the ER. Pt is appropriate for outpt treatment and follow up. Differential Diagnosis Differential diagnosis: Likely upper respiratory infection, sinusitis, viral infection and bronchitis Critical Care Time Critical Care Time Critical Care Time: No Discharge Plan Discharge Clinical Impression: Upper respiratory infection Qualifiers: URI type: unspecified URI Qualified Code(s): J06.9 - Acute upper respiratory infection, unspecified Patient Disposition: Home Condition: Stable Instructions: Upper Respiratory Infection (ED) Additional Instructions: Recommend Flonase spray and Zyrtec (or Claritin/Darya) Tylenol every 8 hours as needed for pain Symptomatic treatment includes: rest, fluids, and increase humidity of the air at home. Follow up with your primary care provider in 1 week. Go to the ER for worsening symptoms or concerns. Patient Language: Spanish Prescriptions: No Action atorvastatin 40 mg tablet 40 mg PO DAILY Qty: 90 2RF metformin 1,000 mg tablet 1,000 mg PO DAILY Qty: 90 2RF meloxicam 15 mg tablet 15 mg PO DAILY Qty: 90 2RF Follow-up/Referrals: Lorenzo Gregory MD [Primary Care Provider] - Stand Alone Forms: Work/School Release IP Time of Disposition: 10:04
== END 2024-12-06 10:09 | disposition home or self-care (01) ==
PROVIDERS: PCP Emergency Medicine
DX: J06.9 Acute upper respiratory infection, unspecified (principal); E11.9 Type 2 diabetes mellitus without complications; Z79.84 Long term (current) use of oral hypoglycemic drugs; M19.90 Unspecified osteoarthritis, unspecified site; E78.00 Pure hypercholesterolemia, unspecified; Z98.52 Vasectomy status
CPT/HCPCS: 99211; G0463

== ENCOUNTER 2025-02-15 10:04 | Emergency (ER) | payer OTHER, SELFPAY ==
[2025-02-15] VITALS (16 sets, daily range): BP systolic 91–128; BP diastolic 60–90; PULSE 88–153; RESP 10–20; TEMP 36.6; O2SAT 95–100
--- NOTE | ~2025-02-15 | XR_ITS ---
EXAMINATION: XR chest 1V portable 02/15/2025 10:59 INDICATION: Chest pain TECHNIQUE:A single AP portable upright frontal image of the chest was obtained. COMPARISON: 10/02/2006 FINDINGS: Heart is not enlarged. No pneumothorax. No pleural effusion. No free air in the diaphragm. There are two 1.2 cm oval nodular densities projecting over the right lower lung and left lower lung. IMPRESSION: 1: No acute pulmonary process identified. 2. There are two 1.2 cm oval nodular densities projecting over the right lower lung and left lower lung. Differential includes nipple shadows or pulmonary nodules. A chest CT is recommended. Reviewed, dictated and finalized at location Q. IMPRESSION: 1: No acute pulmonary process identified. 2. There are two 1.2 cm oval nodular densities projecting over the right lower lung and left lower lung. Differential includes nipple shadows or pulmonary no dules. A chest CT is recommended.
--- NOTE | 2025-02-15 10:15 | ECG_ITS ---
Test Date: 2025-02-15 10:17:35 Measurements Intervals [place] Rate: 145 P: 0 CA: 0 QRS: -56 QRSD: 118 T: 57 QT: 289 QTc: 450 Interpretive Statements ATRIAL FIBRILLATION WITH RAPID VENTRICULAR RESPONSE INCOMPLETE RIGHT BUNDLE BRANCH BLOCK BASELINE ARTIFACT- AVR, AVL ABNORMAL ECG No previous ECG available for comparison Electronically Signed On 02-15-2025 10:18:54 CDT by Manav Medeiros D.O.
--- NOTE | 2025-02-15 10:32 | ED_ITS ---
HPI - Arrhythmia/Palpitations General Chief Complaint: Arrhythmia/Palpitations Stated Complaint: sob, palpitations Time Seen by Provider: 02/15/25 10:17 History of Present Illness HPI narrative: This is a 59-year-old male who presents to the ED for palpitations. Patient states that since last night, he has been having these palpitations. Denies chest pain. He has been having shortness of exertion. No prior cardiac history that he is aware of. Denies fevers, chills. Related Data Allergies Allergy/AdvReac Type Severity Reaction Status Date / Time No Known Allergies Allergy Verified 12/06/24 10:03 Review of Systems 2 Review of Systems: Gen.: Denies fevers or chills Eyes: Denies eye pain or visual change ENT: Denies congestion Respiratory: Denies shortness of breath or cough CV: As per HPI GI: Denies abdominal pain nausea, emesis or diarrhea denies burning, urgency, frequency or hematuria Musculoskeletal: Denies back pain or muscle pain Neuro: Denies numbness, tingling, weakness or focal weakness Skin: Denies rash Except as documented, all other systems reviewed and negative PMFSH Past Medical History Medical History Muscle strain of chest wall Hyperlipidemia Fatigue Calculus of gallbladder with cholecystitis without biliary obstruction Bilateral shoulder pain Vitamin D deficiency Testicular pain Swelling, mass, or lump in chest Rib deformity Pain in unspecified shoulder Pain in left shoulder Otalgia of both ears Male erectile dysfunction, unspecified Lip dryness Hypertriglyceridemia Hyperglycemia Excessive cerumen in left ear canal Excessive cerumen in both ear canals Chronic sinusitis, unspecified Acute pain of left wrist Acute left-sided low back pain with left-sided sciatica Arthritis Diabetes High cholesterol Pain of left thumb Surgical History Surgical History S/P vasectomy No significant past surgical history Social History Social History Smoking status: Never smoker Alcohol intake: current Do You Feel Safe in your Home?: Yes Lack of Transportation: No Lack of Food: Never True Current Housing: I Have Housing Concerned About Future Housing: No Difficulty Paying Gas/Electric Bills: No Difficulty Paying for Meds: No Currently Unemployed: No Education: High School Diploma/GED Difficulty w/ Childcare or Family Care: No Exam 2 Narrative: APPEARANCE: No acute distress, nontoxic, resting in bed EYES: EOMI HEENT: Normocephalic, atraumatic, OMM RESPIRATORY: No respiratory distress Clear to auscultation bilaterally with no rhonchi wheezing or rales. CARDIOVASCULAR: Irregularly irregular without murmurs rubs or gallops. ABDOMINAL: Soft, nontender, nondistended, no rebound or guarding MUSCULOSKELETAl: Moves all extremities. No clubbing, cyanosis or edema. NEURO: Awake and alert. Following commands, speech normal, no focal deficits SKIN:: Warm, dry. No rashes lesions or abrasions PSYCHIATRIC: Normal affect/mood, Course Vital Signs Vital signs: Vital Signs Pulse Rate 137 H 02/15/25 10:18 Respiratory Rate 19 02/15/25 10:18 Blood Pressure 128/90 02/15/25 10:18 Pulse Oximetry 100 02/15/25 10:18 Temperature 98 F 02/15/25 10:28 Pulse Rate 98 02/15/25 13:37 Respiratory Rate 20 02/15/25 13:37 Blood Pressure 102/60 02/15/25 13:37 Pulse Oximetry 99 02/15/25 13:37 Oxygen Delivery Room Air 02/15/25 10:23 MDM - Arrhythmia/Palpitations MDM Narrative Medical decision making narrative: 51-year-old male who presents to the ED for palpitations. Her initial evaluation, patient was in no acute distress, afebrile, hemodynamically stable. He was in AFib RVR rate 130s to 140s. No prior history of AFib. Symptoms started greater than 24 hours ago and he has reportedly had intermittent symptoms so cardioversion contraindicated at this time. He was given Cardizem bolus with improvement of his rate to the 80s to 90s. I did speak with Cardiology who agreed with discharge home on metoprolol 25 mg. Just prior to discharge, patient's heart rate did worsen to the 120s but he remained asymptomatic. He was given a dose of metoprolol here with improvement of his heart rate. He was advised to follow-up with consumer relations specialist next few days for re- evaluation. Patient was agreeable to this plan. Given strict return precautions. Differential Diagnosis Differential diagnosis: Likely palpitations, artial fibrillation and artial flutter Medical Records Attestation: I reviewed the patient's medical records. Lab Data Attestation: I reviewed the patient's lab results. 02/15/25 10:29 02/15/25 10:29 Labs: Lab Results 02/15/25 02/15/25 02/15/25 Range/Units 10:29 11:32 13:19 WBC 7.0 (4.5-10.0) K/mm3 RBC 5.75 (4.6-6.20) M/mm3 Hgb 16.1 (14.0-18.0) g/dL Hct 47.8 (42.0-52.0) % MCV 83.1 (80-100) fl MCH 28.0 (26-34) pg MCHC 33.7 (32-36) g/dl RDW 13.5 (11.5-14.5) % Plt Count 207 (150-375) k/mm3 MPV 10.1 (7.4-10.4) fl Immature Gran % (Auto) 0.1 (0-0.5) % Neut % (Auto) 51.8 (45.5-73.1) % Lymph % (Auto) 22.6 (18.3-44.2) % [place] % (Auto) 10.3 H (2.6-8.5) % Eos % (Auto) 14.1 H (0-4.4) % Baso % (Auto) 1.1 (0.2-1.2) % Lymph # (Auto) 1.58 (0.9-3.2) K/mm3 [place] # (Auto) 0.7 H (0.1-0.6) K/mm3 Eos # (Auto) 1.0 H (0-0.3) K/mm3 Baso # (Auto) 0.1 (0.0-0.1) K/mm3 Abs Immat Gran (auto) 0.01 (0.00-0.031) K/mm3 Absolute Neuts (auto) 3.6 (1.3-6.7) K/mm3 Absolute Nucleated RBC 0.000 (0.0-0.012) K/mm3 Nucleated RBC % 0.0 (0.0-0.2) % Sodium 138 (137-145) mmol/L Potassium 3.9 (3.4-5.0) mmol/L Chloride 100 (98-107) mmol/L Carbon Dioxide 27 (22-30) mmol/L Anion Gap 11 (4-12) mmol/L BUN 17 (9-20) mg/dL Creatinine 0.83 (0.7-1.3) mg/dL Estim Creat Clear Calc 87 ml/min Estimated GFR > 60 (59 - ) Glucose 138 H (65-110) mg/dL Calcium 9.7 (8.4-10.2) mg/dL Total Bilirubin 1.2 (0.2-1.3) mg/dL AST 33 (17-59) U/L ALT 40 (6-50) U/L Alkaline Phosphatase 109 (38-126) U/L Troponin I 0.013 Cancelled (0.000-0.034) ng/mL Total Protein 8.3 H (6.3-8.2) g/dL Albumin 4.8 (3.5-5.1) g/dL Urine Color Yellow (Yellow) Urine Appearance Clear (Clear) Urine pH 6.5 (5.0-9.0) Ur Specific Ebony 1.005 (1.001-1.035) Urine Protein Negative (Negative) mg/dL Urine Glucose (UA) Negative (Negative) mg/dL Urine Ketones Trace H (Negative) mg/dL Ur Blood (Man) Negative (Negative) Urine Nitrate Negative (Negative) Urine Bilirubin Negative (Negative) Urine Urobilinogen 0.2 (<2.0) mg/dL Leukocyte Esterase Rfl Negative (Negative) JAUN/UL Imaging Data Radiologist's impression: Impressions Chest X-Ray 02/15/25 11:04 IMPRESSION: 1: No acute pulmonary process identified. 2. There are two 1.2 cm oval nodular densities projecting over the right lower lung and left lower lung. Differential includes nipple shadows or pulmonary nodules. A chest CT is recommended. ECG Data EKG #1: ECG completion date: 02/15/25 ECG completion time: 10:17 Prior ECG tracings: not available for review Interpretation: AFib with RVR rate of 145, normal axis, incomplete right bundle-branch block, no acute ST or T wave changes Discharge Plan Discharge Clinical Impression: A-fib Patient Disposition: Home Condition: Stable Instructions: Antibiotic Form Additional Instructions: Take metoprolol as prescribed. Follow-up with Dr. Pedroza's office in the next few days for re-evaluation. Return to ED for any new or worsening symptoms. Patient Language: Nepali Prescriptions: New metoprolol succinate 25 mg tablet extended release 24 hr 25 mg PO DAILY Qty: 14 0RF No Action atorvastatin 40 mg tablet 40 mg PO DAILY Qty: 90 2RF metformin 1,000 mg tablet 1,000 mg PO DAILY Qty: 90 2RF meloxicam 15 mg tablet 15 mg PO DAILY Qty: 90 2RF sildenafil [Viagra] 50 mg tablet 50 mg PO DAILY PRN (Reason: sexual activity) Qty: 20 0RF Rx Instructions: administer 30 minutes to 4 hours before activity Follow-up/Referrals: Jong Carreno MD [Physician, Interventional Cardiology] - 2 Weeks Lorenzo Gregory MD [Primary Care Provider, Internal Medicine] Stand Alone Forms: Work/School Release IP
[2025-02-15 10:38] LABS: Hematocrit 47.8 % (42.0-52.0); Hemoglobin 16.1 g/dL (14.0-18.0); Immature Granulocyte Percent A 0.1 % (0-0.5); Lymphocytes Absolute Auto 1.58 K/mm3 (0.9-3.2); Mean Corpuscular HGB Conc 33.7 g/dl (32-36); Mean Corpuscular Hemoglobin 28.0 pg (26-34); Mean Corpuscular Volume 83.1 fl (80-100); Nucleated Red Blood Cells Absolute Auto 0.000 K/mm3 (0.0-0.012); Nucleated Red Blood Cells Perc 0.0 % (0.0-0.2); Platelet Count Result 207 k/mm3 (150-375); Red Blood Count 5.75 M/mm3 (4.6-6.20); White Blood Count 7.0 K/mm3 (4.5-10.0)
[2025-02-15] MEDS: SODIUM CHLORIDE 0.9% IV 1,000 ML 999 ML IV CONT (10:41)
[2025-02-15 11:08] LABS: Alanine Aminotransferase 40 U/L (6-50); Albumin Level 4.8 g/dL (3.5-5.1); Alkaline Phosphatase 109 U/L (38-126); Anion Gap 11 mmol/L (4-12); Aspartate Amino Transferase 33 U/L (17-59); Bilirubin,Total 1.2 mg/dL (0.2-1.3); Blood Urea Nitrogen 17 mg/dL (9-20); Calcium 9.7 mg/dL (8.4-10.2); Carbon Dioxide 27 mmol/L (22-30); Chloride 100 mmol/L (98-107); Estimated CRCL calculation 87 ml/min; Estimated Glomerular Filt Rate > 60; Glucose 138 mg/dL (65-110); Potassium 3.9 mmol/L (3.4-5.0); Sodium 138 mmol/L (137-145); Total Protein 8.3 g/dL (6.3-8.2)
[2025-02-15 11:18] LABS: Troponin I 0.013 ng/mL (0.000-0.034)
[2025-02-15 11:47] LABS: Add Urine Microscopic? NO; Appearance Urine Clear (Clear); Glucose Urine UA Negative (Negative); Leukocyte Esterase Ur Negative LEU/UL (Negative); Nitrate Urine Negative (Negative); Specific Grav Ur 1.005 (1.001-1.035)
[2025-02-15] MEDS: METOPROLOL TARTRATE 25 MG TABLET PO (12:44)
== END 2025-02-15 13:38 | disposition home or self-care (01) ==
PROVIDERS: Emergency Provider Student in an Organized Health Care Education/Training Program; PCP Emergency Medicine
DX: I48.91 Unspecified atrial fibrillation (principal); E78.5 Hyperlipidemia, unspecified; M19.90 Unspecified osteoarthritis, unspecified site; E11.9 Type 2 diabetes mellitus without complications
CPT/HCPCS: 36415; 71045; 80053; 81003; 84484; 85025; 93005; 96361; 96374; 99284; A9270; J1163; J7030

== ENCOUNTER 2025-03-08 10:29 | Outpatient (CLI) | payer OTHER, SELFPAY ==
[2025-03-08 11:09] LABS: Hematocrit 43.6 % (42.0-52.0); Hemoglobin 14.8 g/dL (14.0-18.0); Immature Granulocyte Percent A 0.2 % (0-0.5); Lymphocytes Absolute Auto 1.90 K/mm3 (0.9-3.2); Mean Corpuscular HGB Conc 33.9 g/dl (32-36); Mean Corpuscular Hemoglobin 27.8 pg (26-34); Mean Corpuscular Volume 82.0 fl (80-100); Nucleated Red Blood Cells Absolute Auto 0.000 K/mm3 (0.0-0.012); Nucleated Red Blood Cells Perc 0.0 % (0.0-0.2); Platelet Count Result 190 k/mm3 (150-375); Red Blood Count 5.32 M/mm3 (4.6-6.20); White Blood Count 6.3 K/mm3 (4.5-10.0)
[2025-03-08 11:28] LABS: Hemoglobin A1C 6.0 % (<5.7)
[2025-03-08 11:32] LABS: Alanine Aminotransferase 43 U/L (6-50); Albumin Level 4.7 g/dL (3.5-5.1); Alkaline Phosphatase 84 U/L (38-126); Anion Gap 9 mmol/L (4-12); Aspartate Amino Transferase 32 U/L (17-59); Bilirubin,Total 1.0 mg/dL (0.2-1.3); Blood Urea Nitrogen 20 mg/dL (9-20); Calcium 9.4 mg/dL (8.4-10.2); Carbon Dioxide 26 mmol/L (22-30); Chloride 101 mmol/L (98-107); Cholesterol 115 mg/dL (0-200); Estimated Glomerular Filt Rate > 60; Glucose 112 mg/dL (65-110); HDL Direct 39 mg/dL; Potassium 3.9 mmol/L (3.4-5.0); Sodium 136 mmol/L (137-145); Total Protein 7.8 g/dL (6.3-8.2); Triglycerides 118 mg/dL (<150)
[2025-03-08 12:09] LABS: MALB Creatinine Ratio 27.9 mg/g (0-30)
[2025-03-08 12:09] LABS: Prostate Specific Antigen 0.4 ng/mL (< OR = 4.0); Thyroid Stimulating Hormone 1.400 uIU/mL (0.465-4.680)
== END 2025-03-08 10:30 | disposition home or self-care (01) ==
LOC: ANHLAB 10:30
PROVIDERS: PCP Emergency Medicine; Visit Provider Emergency Medicine
DX: E11.9 Type 2 diabetes mellitus without complications (principal); Z12.5 Encounter for screening for malignant neoplasm of prostate; R53.83 Other fatigue; I10 Essential (primary) hypertension; E78.5 Hyperlipidemia, unspecified; E55.9 Vitamin D deficiency, unspecified
CPT/HCPCS: 36415; 80053; 80061; 82043; 82306; 83036; 84153; 84443; 85025; G0103